=== PATIENT | female | born 1985 | race American Indian/Alaskan Native ===

== ENCOUNTER 2020-01-09 16:54 | Emergency (ER) | payer MEDICAID ==
[2020-01-09] MEDS ORDERED: ASPIRIN 325 MG TAB PO ONE (17:14)
--- NOTE | 2020-01-09 17:45 | XRay Report ---
CHEST 2 VIEWS INDICATION / CLINICAL INFORMATION: Chest Pain. COMPARISON: None available. FINDINGS: SUPPORT DEVICES: None. HEART / MEDIASTINUM: No significant abnormality. LUNGS / PLEURA: No significant pulmonary or pleural abnormality. No pneumothorax. ADDITIONAL FINDINGS: No significant additional findings. IMPRESSION: 1. No acute findings. Signer Name: Panchito Cummings MD Signed: 01/09/2020 5:41 PM Workstation Name: [id number]
[2020-01-09 17:59] LABS: Basophils # (Auto) 0.1 K/mm3 (0.0-0.1); Basophils % (Auto) 1.1 % (0.0-1.8); Eosinophils % (Auto) 0.6 % (0.0-4.3); Hematocrit 38.3 % (30.3-42.9); Hemoglobin 12.7 gm/dl (10.1-14.3); Lymphocytes # (Auto) 1.6 K/mm3 (1.2-5.4); Mean Corpuscular HGB Conc 33 % (30-34); Mean Corpuscular Volume 94 fl (79-97); Monocytes # (Auto) 0.5 K/mm3 (0.0-0.8); Monocytes % (Auto) 10.2 % (0.0-7.3); Platelet Count 178 K/mm3 (140-440); Red Blood Count 4.08 M/mm3 (3.65-5.03)
[2020-01-09 18:27] LABS: Blood Urea Nitrogen 14 mg/dL (7-17); Calcium 9.9 mg/dL (8.4-10.2); Hemolysis Index 33
[2020-01-09] MEDS ORDERED: diphenhydrAMINE 50 MG/ML VIAL IV ONE (18:33)
[2020-01-09 18:34] LABS: BUN/Creatinine Ratio 20
[2020-01-09] MEDS ORDERED: KETOROLAC 30 MG/1 ML INJ IV ONE (18:34)
[2020-01-09] MEDS ORDERED: MORPHINE 4 MG/1 ML INJ IV ONE (18:34)
--- NOTE | 2020-01-09 18:39 | Emergency Department Report ---
ED General Adult HPI - General Chief complaint: Chest Pain Stated complaint: BODY PAIN PUI?: No Time Seen by Provider: 01/09/20 18:22 Source: patient Mode of arrival: Wheelchair Limitations: No Limitations - History of Present Illness Initial comments: Mrs. Rosales is a 34-year-old female with history of sickle cell disease, DVT and asthma who presents with diffuse body pain for the past 2 days. She also has chest pain shortness of breath. She has bilateral leg numbness. She denies trauma. She denies fever. She denies cough. Nondescript chest pain. Currently chest pain-free. 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 SHe recently moved from [facility] 1 week ago. She does not take any home medications. -: Gradual, days(s) (1) Location: chest, left, right, upper extremity, lower extremity Consistency: constant Improves with: none Worsens with: none Associated Symptoms: chest pain, shortness of breath - Related Data Previous Rx's Medication Instructions Recorded Last Taken Type Promethazine [Phenergan] 25 mg PO Q6HR PRN #10 tab 01/09/20 Unknown Rx Allergies Allergy/AdvReac Type Severity Reaction Status Date / Time latex Allergy Unknown Verified 01/09/20 17:09 metoclopramide [From Reglan] Allergy Unknown Verified 01/09/20 17:10 metronidazole [From Flagyl] Allergy Unknown Verified 01/09/20 17:09 naproxen Allergy Unknown Verified 01/09/20 17:09 ondansetron [From Zofran] Allergy Unknown Verified 01/09/20 17:10 Penicillins Allergy Unknown Verified 01/09/20 17:08 Sulfa (Sulfonamide Allergy Unknown Verified 01/09/20 17:09 Antibiotics) ED Review of Systems ROS: Stated complaint: BODY PAIN Other details as noted in HPI Comment: All other systems reviewed and negative Constitutional: denies: chills, fever, malaise Respiratory: shortness of breath. denies: cough Cardiovascular: chest pain Musculoskeletal: myalgia ED Past Medical Hx - Past Medical History Previous Medical History?: Yes Hx Sickle Cell Disease: Yes Hx Asthma: Yes - Surgical History Past Surgical History?: Yes - Social History Smoking Status: Never Smoker Substance Use Type: Marijuana - Medications Home Medications: Home Medications Medication Instructions Recorded Confirmed Last Taken Type Promethazine [Phenergan] 25 mg PO Q6HR PRN #10 tab 01/09/20 Unknown Rx ED Physical Exam - General Limitations: No Limitations General appearance: alert, in no apparent distress - Head Head exam: Present: atraumatic, normocephalic - Eye Eye exam: Present: normal appearance. Absent: scleral icterus - ENT ENT exam: Present: mucous membranes moist - Neck Neck exam: Present: normal inspection, full ROM - Respiratory Respiratory exam: Present: normal lung sounds bilaterally. Absent: respiratory distress, wheezes, rales, rhonchi - Cardiovascular Cardiovascular Exam: Present: regular rate, normal rhythm, normal heart sounds. Absent: systolic murmur, diastolic murmur, rubs, gallop - GI/Abdominal GI/Abdominal exam: Present: soft, normal bowel sounds. Absent: distended, tenderness, guarding, rebound - Extremities Exam Extremities exam: Present: normal inspection - Neurological Exam Neurological exam: Present: alert, oriented X3 - Psychiatric Psychiatric exam: Present: normal affect, normal mood - Skin Skin exam: Present: warm, dry, intact, normal color. Absent: rash ED Course Vital Signs 01/09/20 19:27 Pulse Rate 91 H Respiratory 17 Rate Blood Pressure 103/56 [Left] O2 Sat by Pulse 99 Oximetry ED Medical Decision Making - Lab Data Result diagrams: 01/09/20 17:33 01/09/20 17:33 Laboratory Results - last 24 hr 01/09/20 01/09/20 01/09/20 17:33 17:33 17:33 WBC 4.5 RBC 4.08 Hgb 12.7 Hct 38.3 MCV 94 MCH 31 MCHC 33 RDW 14.0 Plt Count 178 Lymph % (Auto) 35.0 [place] % (Auto) 10.2 H Eos % (Auto) 0.6 Baso % (Auto) 1.1 Lymph # 1.6 [place] # 0.5 Eos # 0.0 Baso # 0.1 Seg Neutrophils % 53.1 Seg Neutrophils # 2.4 Percent Retic 0.81 Sodium 138 Potassium 3.6 Chloride 100.0 Carbon Dioxide 17 L Anion Gap 25 BUN 14 Creatinine 0.7 Estimated GFR > 60 BUN/Creatinine Ratio 20 Glucose 69 Calcium 9.9 Troponin T < 0.010 - EKG Data -: EKG Interpreted by [facility] EKG shows normal: sinus rhythm, axis, intervals, QRS complexes, ST-T waves Rate: normal - EKG Data Interpretation: normal EKG - Radiology Data Radiology results: report reviewed Chest radiograph: No acute findings - Medical Decision Making Mrs. Rosales presents with generalized body pain. No evidence of anemia or hemolysis. Patient has normal reticulocyte count. I am unsure if patient has sickle cell disease or sickle cell trait. Recommended [id number] medication analgesia for pain. I will prescribe promethazine for nausea. She was referred to our outpatient medicine physician. Critical care attestation.: If time is entered above; I have spent that time in minutes in the direct care of this critically ill patient, excluding procedure time. ED Disposition Clinical Impression: Generalized pain Disposition: DC-01 TO HOME OR SELFCARE Is pt being admited?: No Does the pt Need Aspirin: No Condition: Stable Additional Instructions: Please return to the ER if you develop fever, shortness of breath, chest pain or new symptoms. Prescriptions: Promethazine [Phenergan] 25 mg PO Q6HR PRN #10 tab PRN Reason: Nausea Referrals: ROSEMARY HUSSEIN MD [Staff Physician] - 3-5 Days Forms: Work/School Release Form(ED)
[2020-01-09] MEDS ORDERED: D5W/0.2% NACL 1,000 ML IV SCH (19:00)
[2020-01-09 19:29] VITALS: BP 103/56
== END 2020-01-09 20:10 | disposition home or self-care (01) ==
LOC: ED 16:54
DX: R07.89 Other chest pain (principal); R06.02 Shortness of breath; M79.10 Myalgia, unspecified site; J45.909 Unspecified asthma, uncomplicated; F12.10 Cannabis abuse, uncomplicated; Z79.899 Other long term (current) drug therapy; Z91.040 Latex allergy status; Z88.0 Allergy status to penicillin; Z88.4 Allergy status to anesthetic agent; Z88.8 Allergy status to other drugs, medicaments and biological substances
CPT/HCPCS: 36415; 71046; 80048; 84484; 85025; 85045; 93005; 96374; 96375; 99284; J1200; J1885; J2270

== ENCOUNTER 2020-01-10 07:58 | Observation (INO) | payer MEDICAID ==
[2020-01-10] MEDS ORDERED: FAMOTIDINE 20 MG/2 ML INJ IV ONE (09:20)
[2020-01-10] MEDS ORDERED: SODIUM CHLORIDE 0.9% 1000 ML 1,000 ML IV ONE ×3 (09:20→12:57)
[2020-01-10] MEDS ORDERED: fentaNYL 100 MCG/2 ML INJ IV ONE (09:22)
--- NOTE | 2020-01-10 09:30 | Emergency Department Report ---
ED General Adult HPI - General Chief complaint: Sickle Cell Crisis Stated complaint: SICKLE CELL Time Seen by Provider: 01/10/20 09:03 Source: patient Mode of arrival: Wheelchair Limitations: No Limitations - History of Present Illness Initial comments: Patient is 34 years old female stating that she had history of sickle cell disease. She stated that she was diagnosed in a sickle cell clinic in [facility]. Patient presented to the ER complaining of diffuse abdominal pain and chest pain. Patient stated that pain started 2 to 3 days ago. Pain is sharp and aching sometimes with no radiation. Patient stated that she is unable to keep anything down. Patient denied any fever or chills. No shortness of breath, cough runny nose or congestion. No recent contact with COVID-19 patient. Patient with significant dry mucous membrane and strong smell of acetone. I believe patient is dehydrated. Patient started on normal saline, given fentanyl and Phenergan for nausea since patient is allergic to Zofran and Reglan. - Related Data Previous Rx's Medication Instructions Recorded Last Taken Type Promethazine [Phenergan] 25 mg PO Q6HR PRN #10 tab 01/09/20 Unknown Rx Allergies Allergy/AdvReac Type Severity Reaction Status Date / Time latex Allergy Unknown Verified 01/09/20 17:09 metoclopramide [From Reglan] Allergy Unknown Verified 01/09/20 17:10 metronidazole [From Flagyl] Allergy Unknown Verified 01/09/20 17:09 naproxen Allergy Unknown Verified 01/09/20 17:09 ondansetron [From Zofran] Allergy Unknown Verified 01/09/20 17:10 Penicillins Allergy Unknown Verified 01/09/20 17:08 Sulfa (Sulfonamide Allergy Unknown Verified 01/09/20 17:09 Antibiotics) ED Review of Systems ROS: Stated complaint: SICKLE CELL Other details as noted in HPI Comment: All other systems reviewed and negative Constitutional: denies: chills, fever Respiratory: denies: cough, shortness of breath, SOB with exertion, SOB at rest, wheezing Cardiovascular: chest pain. denies: palpitations, dyspnea on exertion, orthopnea Gastrointestinal: abdominal pain, nausea, vomiting. denies: diarrhea, constipation, hematemesis, melena, hematochezia Musculoskeletal: denies: back pain Neurological: denies: headache ED Past Medical Hx - Past Medical History Previous Medical History?: Yes Hx Sickle Cell Disease: Yes Hx Asthma: Yes - Social History Smoking Status: Never Smoker Substance Use Type: Marijuana - Medications Home Medications: Home Medications Medication Instructions Recorded Confirmed Last Taken Type Promethazine [Phenergan] 25 mg PO Q6HR PRN #10 tab 01/09/20 Unknown Rx ED Physical Exam - General Limitations: No Limitations General appearance: alert, obtunded - Head Head exam: Present: atraumatic, normocephalic, normal inspection - Eye Eye exam: Present: normal appearance, PERRL - ENT ENT exam: Present: mucous membranes dry - Neck Neck exam: Present: normal inspection, full ROM. Absent: tenderness, meningismus, lymphadenopathy, thyromegaly - Respiratory Respiratory exam: Present: normal lung sounds bilaterally - Cardiovascular Cardiovascular Exam: Present: regular rate, normal rhythm, normal heart sounds - GI/Abdominal GI/Abdominal exam: Present: soft, normal bowel sounds. Absent: distended, tenderness, guarding, rebound, rigid, organomegaly, mass, bruit, pulsatile mass, hernia - Extremities Exam Extremities exam: Present: normal inspection, full ROM, normal capillary refill. Absent: pedal edema, calf tenderness - Back Exam Back exam: Present: normal inspection, full ROM. Absent: CVA tenderness (R), CVA tenderness (L) - Neurological Exam Neurological exam: Present: alert, oriented X3, CN II-XII intact, normal gait, reflexes normal - Psychiatric Psychiatric exam: Present: normal mood - Skin Skin exam: Present: warm, dry, intact, normal color ED Course Vital Signs 01/10/20 01/10/20 01/10/20 08:06 09:19 09:21 Temperature 97.7 F Pulse Rate 69 68 Respiratory 20 18 11 L Rate Blood Pressure 105/62 124/68 Blood Pressure [Left] O2 Sat by Pulse 99 96 100 Oximetry 01/10/20 01/10/20 01/10/20 09:30 09:31 09:41 Temperature Pulse Rate 68 75 70 Respiratory 16 11 L 14 Rate Blood Pressure 124/68 124/68 Blood Pressure 124/68 [Left] O2 Sat by Pulse 96 97 100 Oximetry 01/10/20 01/10/20 01/10/20 09:51 10:00 10:10 Temperature Pulse Rate 48 L 48 L 58 L Respiratory 11 L 13 15 Rate Blood Pressure 124/68 125/62 125/62 Blood Pressure [Left] O2 Sat by Pulse 100 100 100 Oximetry 01/10/20 01/10/20 01/10/20 10:21 10:30 10:31 Temperature Pulse Rate 51 L 85 Respiratory 18 18 18 Rate Blood Pressure 125/62 125/62 Blood Pressure [Left] O2 Sat by Pulse 100 100 Oximetry 01/10/20 01/10/20 01/10/20 10:33 10:41 10:50 Temperature Pulse Rate 72 49 L 83 Respiratory 18 15 17 Rate Blood Pressure 125/62 125/62 Blood Pressure 124/72 [Left] O2 Sat by Pulse 100 100 100 Oximetry 01/10/20 01/10/20 01/10/20 11:57 12:00 12:08 Temperature Pulse Rate 60 64 Respiratory 13 18 Rate Blood Pressure 107/69 105/64 Blood Pressure 102/66 [Left] O2 Sat by Pulse 100 98 Oximetry 01/10/20 01/10/20 01/10/20 12:11 12:21 12:30 Temperature Pulse Rate 84 84 Respiratory 21 20 Rate Blood Pressure 105/64 105/64 105/64 Blood Pressure [Left] O2 Sat by Pulse 99 100 100 Oximetry 01/10/20 01/10/20 01/10/20 12:41 12:51 13:00 Temperature Pulse Rate Respiratory Rate Blood Pressure 105/64 105/64 130/73 Blood Pressure [Left] O2 Sat by Pulse 100 100 100 Oximetry 01/10/20 01/10/20 01/10/20 13:11 13:21 13:31 Temperature Pulse Rate Respiratory Rate Blood Pressure 130/73 130/73 130/73 Blood Pressure [Left] O2 Sat by Pulse 100 100 99 Oximetry 01/10/20 01/10/20 01/10/20 13:41 13:58 14:00 Temperature Pulse Rate 81 Respiratory 18 Rate Blood Pressure 130/73 130/73 107/76 Blood Pressure [Left] O2 Sat by Pulse 100 100 100 Oximetry 01/10/20 01/10/20 01/10/20 14:11 14:21 14:30 Temperature Pulse Rate 61 56 L 88 Respiratory 20 19 16 Rate Blood Pressure 107/76 107/76 Blood Pressure 104/66 [Left] O2 Sat by Pulse 100 100 98 Oximetry 01/10/20 01/10/20 01/10/20 14:31 14:41 14:51 Temperature Pulse Rate 59 L 80 71 Respiratory 11 L 13 12 Rate Blood Pressure 107/76 107/76 107/76 Blood Pressure [Left] O2 Sat by Pulse 100 100 Oximetry 01/10/20 01/10/20 01/10/20 15:01 15:11 15:21 Temperature Pulse Rate 60 55 L 61 Respiratory 19 17 15 Rate Blood Pressure 107/76 107/76 107/76 Blood Pressure [Left] O2 Sat by Pulse 99 100 100 Oximetry 01/10/20 01/10/20 01/10/20 15:31 15:41 15:51 Temperature Pulse Rate 61 73 Respiratory 18 19 Rate Blood Pressure 107/76 107/76 107/76 Blood Pressure [Left] O2 Sat by Pulse 100 100 100 Oximetry 01/10/20 01/10/20 01/10/20 16:01 16:10 16:11 Temperature Pulse Rate 70 Respiratory 18 Rate Blood Pressure 107/76 107/76 Blood Pressure 118/56 [Left] O2 Sat by Pulse 100 97 100 Oximetry 01/10/20 01/10/20 01/10/20 16:21 16:31 16:41 Temperature Pulse Rate Respiratory Rate Blood Pressure 107/76 107/76 107/76 Blood Pressure [Left] O2 Sat by Pulse 100 100 100 Oximetry 01/10/20 01/10/20 01/10/20 16:51 17:00 17:11 Temperature Pulse Rate Respiratory Rate Blood Pressure 107/76 126/62 126/62 Blood Pressure [Left] O2 Sat by Pulse 100 100 98 Oximetry 01/10/20 01/10/20 01/10/20 17:21 17:31 17:41 Temperature Pulse Rate Respiratory Rate Blood Pressure 126/62 126/62 126/62 Blood Pressure [Left] O2 Sat by Pulse 100 100 100 Oximetry 01/10/20 01/10/20 01/10/20 17:51 18:00 18:10 Temperature Pulse Rate 68 Respiratory 16 Rate Blood Pressure 126/62 126/62 Blood Pressure [Left] O2 Sat by Pulse 100 100 98 Oximetry ED Medical Decision Making - Lab Data Result diagrams: 01/10/20 09:30 01/10/20 09:30 - EKG Data -: EKG Interpreted by De EKG shows normal: sinus rhythm Rate: bradycardia - EKG Data Interpretation: no acute changes - Radiology Data Radiology results: report reviewed - Medical Decision Making Patient is 34 years old female stating that she had history of sickle cell disease. She stated that she was diagnosed in a sickle cell clinic in [facility]. Patient presented to the ER complaining of diffuse abdominal pain and chest pain. Patient stated that pain started 2 to 3 days ago. Pain is sharp and aching sometimes with no radiation. Patient stated that she is unable to keep anything down. Patient denied any fever or chills. No shortness of breath, cough runny nose or congestion. No recent contact with COVID-19 patient. Patient with significant dry mucous membrane and strong smell of acetone. I believe patient is dehydrated. Patient started on normal saline, given fentanyl and Phenergan for nausea since patient is allergic to Zofran and Reglan. Patient stated that when she received Zofran or Reglan last time her throat started closing up. Patient received multiple doses of antiemetic including Phenergan, Benadryl and Pepcid. Patient continued to vomit. Patient received 3 L of normal saline.Labs reviewed and is unremarkable. CT abdomen and pelvis with IV contrast is unremarkable for acute finding. I discussed the patient with for admission for intractable vomiting and further work-up. Critical care attestation.: If time is entered above; I have spent that time in minutes in the direct care of this critically ill patient, excluding procedure time. ED Disposition Clinical Impression: Intractable nausea and vomiting, Acute dehydration Disposition: 09 OP ADMIT IP TO THIS HOSP Is pt being admited?: Yes Condition: Stable
[2020-01-10 09:53] LABS: Basophils % (Auto) 0.7 % (0.0-1.8); Eosinophils % (Auto) 0.3 % (0.0-4.3); Hematocrit 38.2 % (30.3-42.9); Hemoglobin 12.9 gm/dl (10.1-14.3); Lymphocytes # (Auto) 0.9 K/mm3 (1.2-5.4); Lymphocytes % (Auto) 20.8 % (13.4-35.0); Mean Corpuscular HGB Conc 34 % (30-34); Mean Corpuscular Volume 92 fl (79-97); Monocytes # (Auto) 0.3 K/mm3 (0.0-0.8); Monocytes % (Auto) 7.7 % (0.0-7.3); Platelet Count 186 K/mm3 (140-440); Red Blood Count 4.14 M/mm3 (3.65-5.03); Red Cell Distribution Width 13.9 % (13.2-15.2)
[2020-01-10 10:13] LABS: Alanine Aminotransferase 12 units/L (7-56); Blood Urea Nitrogen 17 mg/dL (7-17); Hemolysis Index 4
[2020-01-10 10:14] LABS: BUN/Creatinine Ratio 24; Bilirubin,Direct < 0.2 mg/dL (0-0.2)
[2020-01-10] MEDS ORDERED: diphenhydrAMINE 50 MG/ML VIAL IV ONE (10:38)
--- NOTE | 2020-01-10 12:15 | Cat Scan Report ---
CT ABDOMEN AND PELVIS WITH IV CONTRAST INDICATION: Diffuse abdominal pain for 3 days.. COMPARISON: None available. TECHNIQUE: All CT scans at this facility use dose modulation, automated exposure control, iterative reconstructi on or weight based dosing, when appropriate, to reduce radiation dose to as low as reasonably achieva ble. FINDINGS: Lung Bases: No significant abnormality. Skeletal System: No acute abnormality. ABDOMEN: Liver: No significant abnormality. Gallbladder: Removed. Bile Ducts: No significant abnormality. Pancreas: No significant abnormality. Spleen: No significant abnormality. Adrenals: No significant abnormality. Right Kidney: No significant abnormality. Left Kidney: No significant abnormality. Simple cyst in the anterior cortex. Upper GI tract: No significant abnormality. Lymph Nodes: No significant adenopathy. Aorta: No significant abnormality. Additional Findings: No significant abnormality. PELVIS: Colon: No acute abnormality. The colon is collapsed throughout, limiting its evaluation. Urinary Bladder and Distal Ureters: No significant abnormality. Appendix: No significant abnormality. Lymph Nodes: No significant adenopathy. Additional Findings: None. IMPRESSION: 1. No acute process in the abdomen or pelvis. 2. Incidental findings, as above. Signer Name: Panchito Cummings MD Signed: 01/10/2020 12:11 PM Workstation Name: [id number]
[2020-01-10] MEDS: fentaNYL 100 MCG/2 ML INJ IV ONE ×2 (13:40→13:55)
[2020-01-10] MEDS ORDERED: fentaNYL 100 MCG/2 ML INJ ONE (13:41)
[2020-01-10] MEDS ORDERED: PROMETHAZINE 25 MG RECT SUPP PR ONE (14:37)
[2020-01-10] MEDS ORDERED: HALOPERIDOL LACTATE 5 MG/1 ML INJ IM ONE (15:26)
[2020-01-10] MEDS ORDERED: ONDANSETRON 4 MG/2 ML INJ IV PRN (15:27)
[2020-01-10] MEDS ORDERED: ACETAMINOPHEN 325 MG TAB PO PRN (15:27)
[2020-01-10] MEDS ORDERED: ALBUTEROL 2.5 MG/3 ML NEBU IH PRN (15:27)
[2020-01-10] MEDS ORDERED: SODIUM CHLORIDE 0.9% 1000 ML 1,000 ML IV SCH (15:30)
[2020-01-10 16:43] LABS: Bilirubin,Urine NEG (Negative); Blood,Urine LG (Negative); Color,Urine Yellow (Yellow); Mucus,Urine FEW /HPF; Urobilinogen,Urine < 2.0 mg/dL (<2.0)
[2020-01-10 16:49] LABS: Amphetamine Screen,Urine Negative; Benzodiazepines Screen,Urine Negative; Cocaine Screen,Urine Negative; Methadone Screen,Urine Negative; Opiate Screen,Urine Negative
[2020-01-10 17:13] LABS: Cannabinoid Screen,Urine Positive
--- NOTE | 2020-01-10 17:21 | History and Physical Report ---
History of Present Illness Date of admission: 01/10/20 15:48 Chief complaint: I feel sick at my stomach History of present illness: 34 YO Female with Asthma, Unverified report of SCD not currently on medication, and not under the care of a Customer Solutions Representative, with chronic marijuana use presents to ED for evaluation. Pt states that that she has experienced multiple episodes of nausea followed by abdominal discomfort over the past 6 months with recurrent symptoms over the past 1 week with worsening symptoms over the past 3 days. Patient also acknowledges inability to tolerate oral intake. Patient transported to [facility] via private vehicle for further evaluation and care. Patient seen and evaluated in the emergency department. Lab and imaging studies reviewed. Patient found to have intractable nausea and vomiting suspect secondary to chronic marijuana use, volume depletion, and metabolic acidosis. Patient placed in observation status and admitted to medical floor and treated with IV fluid resuscitation therapy. Patient denies fever, chills, chest pain, palpitations, productive cough, skin rash, unilateral leg swelling, calf pain, productive cough, skin rash, ingestion of food/water from new or different sources, recent ill contacts, or known exposure to COVID-19. No prior admission for review. All medication listed at time of admission has been reconciled. Past History Past Medical History: other (See HPI) Past Surgical History: No surgical history, Other (Reviewed) Social history: single. denies: smoking, alcohol abuse, prescription drug abuse Family history: hypertension Medications and Allergies Allergies Allergy/AdvReac Type Severity Reaction Status Date / Time latex Allergy Unknown Verified 01/09/20 17:09 metoclopramide [From Reglan] Allergy Unknown Verified 01/09/20 17:10 metronidazole [From Flagyl] Allergy Unknown Verified 01/09/20 17:09 naproxen Allergy Unknown Verified 01/09/20 17:09 ondansetron [From Zofran] Allergy Unknown Verified 01/09/20 17:10 Penicillins Allergy Unknown Verified 01/09/20 17:08 Sulfa (Sulfonamide Allergy Unknown Verified 01/09/20 17:09 Antibiotics) Home Medications Medication Instructions Recorded Confirmed Last Taken Type Promethazine [Phenergan] 25 mg PO Q6HR PRN #10 tab 01/09/20 Unknown Rx Active Meds: Active Medications Acetaminophen (Tylenol) 650 mg PO Q4H PRN PRN Reason: Pain MILD(1-3)/Fever >100.5/BOURGEOIS Albuterol (Proventil) 2.5 mg IH Q4H PRN PRN Reason: Shortness Of Breath Sodium Chloride (Nacl 0.9% 1000 Ml) 1,000 mls @ 150 mls/hr IV DIRECT ALIN Ondansetron HCl (Zofran) 4 mg IV Q8H PRN PRN Reason: Nausea And Vomiting Sodium Chloride (Sodium Chloride Flush Syringe 10 Ml) 10 ml IV BID ALIN Sodium Chloride (Sodium Chloride Flush Syringe 10 Ml) 10 ml IV PRN PRN PRN Reason: LINE FLUSH Review of Systems Constitutional: no weight loss, no weight gain, no fever, no chills Ears, nose, mouth and throat: no ear pain, no ear discharge, no decreased hearing, no nose pain Cardiovascular: no chest pain, no orthopnea, no lightheadedness Respiratory: no cough, no cough with sputum, no excessive sputum, no shortness of breath Gastrointestinal: nausea, no constipation, no change in bowel habits, no BRBPR, no loss of appetite Genitourinary Female: no pelvic pain, no flank pain, no dysuria, no urinary frequency, no urgency Rectal: no pain, no incontinence, no bleeding Musculoskeletal: no neck stiffness, no neck pain, no shooting arm pain, no arm numbness/tingling, no low back pain, no leg numbness/tingling Integumentary: no rash, no pruritis, no redness, no sores, no wounds Neurological: no paralysis, no weakness, no parathesias, no tingling Psychiatric: no anxiety, no memory loss, no sleep disturbances, no hypersomnia, no change in libido, no suicidal ideation Endocrine: no cold intolerance, no heat intolerance, no polyphagia, no excessive thirst, no polydipsia, no polyuria, no nocturia Hematologic/Lymphatic: no easy bruising, no easy bleeding, no lymphadenopathy, no lymphedema Allergic/Immunologic: no urticaria, no wheezing, no persistent infections, no anaphylaxis, no angioedema Exam - Constitutional Vitals: Temp Pulse Resp BP Pulse Ox 97.7 F 72 18 124/72 100 01/10/20 08:06 01/10/20 10:33 01/10/20 10:33 01/10/20 10:33 01/10/20 10:33 General appearance: Present: mild distress - EENT Eyes: Present: PERRL ENT: hearing intact, clear oral mucosa, other (Oral mucosa is dry) - Neck Neck: Present: supple, normal ROM - Respiratory Respiratory effort: normal Respiratory: bilateral: CTA - Cardiovascular Heart Sounds: Present: S1 & S2. Absent: rub, click - Extremities Extremities: pulses symmetrical, No edema Peripheral Pulses: within normal limits - Abdominal General gastrointestinal: Present: soft, non-tender, non-distended, normal bowel sounds Female genitourinary: Present: normal - Integumentary Integumentary: Present: clear, warm, dry - Musculoskeletal Musculoskeletal: gait normal, strength equal bilaterally - Psychiatric Psychiatric: appropriate mood/affect, intact judgment & insight - Neurologic Neurologic: CNII-XII intact, moves all extremities HEART Score - HEART Score Troponin: Troponin T < 0.010 ng/mL (0.00-0.029) 01/10/20 09:35 Results - Labs CBC & Chem 7: 01/10/20 09:30 01/10/20 09:30 Labs: Abnormal lab results 01/10/20 01/10/20 01/10/20 Range/Units 09:30 09:30 Unknown [place] % (Auto) 7.7 H (0.0-7.3) % Lymph # 0.9 L (1.2-5.4) K/mm3 Seg Neutrophils % 70.5 H (40.0-70.0) % Carbon Dioxide 17 L (22-30) mmol/L Glucose 104 H (65-100) mg/dL Total Protein 9.2 H (6.3-8.2) g/dL Ur Specific [place] 1.044 H (1.003-1.030) Assessment and Plan - Patient Problems (1) Volume depletion Current Visit: Yes Status: Acute Plan to address problem: IV fluid resuscitation therapy BMP, repeat BMP in a.m., monitor urine output every shift. (2) Metabolic acidosis Current Visit: Yes Status: Acute Plan to address problem: IV fluid resuscitation therapy, BMP, repeat BMP in a.m., IV bicarbonate therapy. (3) Cannabis hyperemesis syndrome concurrent with and due to cannabis abuse Current Visit: Yes Status: Acute Plan to address problem: Patient counseled regarding marijuana cessation, supportive care. Haldol, Ativan, Benadryl, supportive care. (4) Intractable nausea and vomiting Current Visit: Yes Status: Acute Plan to address problem: Antiemetic therapy, supportive care, ice chips, advance diet as tolerated. (5) DVT prophylaxis Current Visit: Yes Status: Acute Plan to address problem: SCD to bilateral lower extremities while in bed, patient is ambulatory.
[2020-01-10 20:34] VITALS: BP 128/80
== END 2020-01-10 21:45 | disposition left against medical advice (07) ==
LOC: ED 07:58 → 3B-SURG 15:48
PROVIDERS: ADMIT Internal Medicine; ATTEND Internal Medicine
DX: E86.9 Volume depletion, unspecified (principal); R11.2 Nausea with vomiting, unspecified; E86.0 Dehydration; E87.2 Acidosis; D57.1 Sickle-cell disease without crisis; Z79.899 Other long term (current) drug therapy; Z88.0 Allergy status to penicillin; Z88.6 Allergy status to analgesic agent; Z88.2 Allergy status to sulfonamides; Z91.040 Latex allergy status; Z88.8 Allergy status to other drugs, medicaments and biological substances
CPT/HCPCS: 36415; 74177; 80048; 80076; 80307; 81001; 83690; 84484; 84703; 85025; 85045; 93005; 96361; 96374; 96375; 96376; 99285; G0378; J1200; J3010; J7030; Q9967; 80320; G0480

== ENCOUNTER 2020-01-11 12:27 | Emergency (ER) | payer MEDICAID | END 2020-01-11 12:55 | disposition left against medical advice (07) | LOC: ED 12:27 | DX: D57.1 Sickle-cell disease without crisis (principal); Z53.21 Procedure and treatment not carried out due to patient leaving prior to being seen by health care provider ==